=== PATIENT | female | born 1970 | race Caucasian/White ===

== ENCOUNTER 2023-02-02 08:41 | Outpatient (CLI) | payer OTHER, SELFPAY | END 2023-02-02 08:42 | disposition home or self-care (01) | PROVIDERS: PCP Family Medicine; Visit Provider Family Medicine | DX: R63.4 Abnormal weight loss (principal); R53.83 Other fatigue | CPT/HCPCS: 80053; 84443; 86140 ==

== ENCOUNTER 2023-02-09 13:27 | Outpatient (CLI) | payer OTHER, SELFPAY | END 2023-02-09 13:28 | disposition home or self-care (01) | PROVIDERS: PCP Family Medicine; Visit Provider Family Medicine | DX: Z00.00 Encounter for general adult medical examination without abnormal findings (principal); R63.4 Abnormal weight loss; E87.6 Hypokalemia; E03.9 Hypothyroidism, unspecified; R10.84 Generalized abdominal pain; K21.9 Gastro-esophageal reflux disease without esophagitis; Z80.0 Family history of malignant neoplasm of digestive organs; Z80.3 Family history of malignant neoplasm of breast; Z80.49 Family history of malignant neoplasm of other genital organs | CPT/HCPCS: 83690; 86300; 86301; 86304 ==

== ENCOUNTER 2023-02-15 12:15 | Outpatient (CLI) | payer OTHER, SELFPAY | END 2023-02-15 12:16 | disposition home or self-care (01) | LOC: NFLDREF 02-22 16:47 | PROVIDERS: PCP Family Medicine; Referring Provider Family Medicine; Visit Provider Family Medicine | DX: K21.9 Gastro-esophageal reflux disease without esophagitis (principal); R10.84 Generalized abdominal pain; R63.4 Abnormal weight loss; Z90.49 Acquired absence of other specified parts of digestive tract | CPT/HCPCS: 82705; 87338 ==

== ENCOUNTER 2024-06-13 08:17 | Outpatient (CLI) | payer BC, SELFPAY | END 2024-06-13 08:18 | disposition home or self-care (01) | LOC: NFLDREF 06-18 23:47 | PROVIDERS: PCP Family Medicine; Referring Provider Family Medicine; Visit Provider Family Medicine | DX: E87.6 Hypokalemia (principal); E03.9 Hypothyroidism, unspecified; Z13.6 Encounter for screening for cardiovascular disorders | CPT/HCPCS: 80053; 80061; 84439; 84443 ==

== ENCOUNTER 2024-11-12 13:46 | Outpatient (CLI) | payer BC, SELFPAY ==
[2024-11-15 09:52] LABS: HPV Source Endocervical
[2024-11-18 12:30] LABS: Pap Test Digital Imaging Done
== END 2024-11-12 13:47 | disposition home or self-care (01) ==
PROVIDERS: PCP Family Medicine; Visit Provider Family Medicine
DX: Z12.4 Encounter for screening for malignant neoplasm of cervix (principal); Z11.59 Encounter for screening for other viral diseases
CPT/HCPCS: 80053; 84443; 86803; 87624; 87625; 88141; 88142; 88175